=== PATIENT | female | born 1995 | race Caucasian/White ===

== ENCOUNTER 2023-03-02 20:55 | Emergency (ER) | payer OTHER ==
[~2023-03-02] VITALS: Ht 175.3 cm; Wt 63.0 kg
--- NOTE | 2023-03-02 21:00 | NUR ---
PT BIBA TO [facility] FOR ABD PAIN.
--- NOTE | 2023-03-02 21:12 | NUR ---
LAB AT BEDSIDE DRAWING BLOOD.
[2023-03-02] MEDS ORDERED: IV NORMAL SALINE 1000 ML BAG IV ONE (21:15)
[2023-03-02] MEDS ORDERED: KETOROLAC TROMETHAMINE 30 MG INJ IVP ONE (21:15)
[2023-03-02] MEDS ORDERED: ONDANSETRON 4 MG/2 ML VIAL IV ONE (21:15)
[2023-03-02] MEDS ORDERED: KETOROLAC TROMETHAMINE 30 MG INJ ONE (21:16)
[2023-03-02] MEDS ORDERED: ONDANSETRON 4 MG/2 ML VIAL ONE (21:16)
[2023-03-02 21:21] LABS: MEAN CORPUSCULAR HEMOGLOBIN 30.9 uug (24.7-32.8); MEAN CORPUSCULAR VOLUME 91.3 fL (75.5-95.3); PLATELET COUNT (AUTO) 187 K/uL (179-408)
[2023-03-02 21:29] LABS: LIPASE 68 U/L (73-393)
[2023-03-02 21:37] LABS: ALANINE AMINOTRANSFERASE 24 U/L (14-59); ALKALINE PHOSPHATASE 58 U/L (50-136); ASPARTATE AMINOTRANSFERASE 14 U/L (15-37); BILIRUBIN,DIRECT 0.1 mg/dL (0.0-0.2); BILIRUBIN,TOTAL 0.4 mg/dL (0.2-1.0); CARBON DIOXIDE 24 mmol/L (21-32); CHLORIDE 107 mmol/L (98-107); CREATININE 0.8 mg/dL (0.6-1.3); GLUCOSE 137 mg/dL (74-106); POTASSIUM 3.3 mmol/L (3.5-5.1); TOTAL PROTEIN, SERUM 6.9 g/dL (6.4-8.2); UREA NITROGEN, BLOOD 9 mg/dL (7-18)
[2023-03-02] MEDS ORDERED: ONDA4TAB11 PO (22:28)
--- NOTE | 2023-03-02 22:50 | NUR ---
PT A,A AND O X 4 WITH ABD PAIN 3/10 AND NO N/V WITH NAD OBSERVED. Patient discharged to home in stable condition. Written and verbal after care instructions given. Patient verbalizes understanding of instructions. Stressed follow up or return to ER for worsening s/s. PT AMB OUT WITH STEADY GAIT WITH S.O.
[2023-03-02 22:57] VITALS: BP 104/57
== END 2023-03-02 22:50 | disposition home or self-care (01) ==
LOC: ER 21:07
DX: N94.6 Dysmenorrhea, unspecified (principal); R55 Syncope and collapse; N80.9 Endometriosis, unspecified; R10.2 Pelvic and perineal pain; Z79.899 Other long term (current) drug therapy; Z88.8 Allergy status to other drugs, medicaments and biological substances
CPT/HCPCS: 99284; 96374; 96361; 96375; 80076; 80048; 83690; 85025; 84484; 84702; 36415; 93005; J1885; J2405; J7040; A4663